=== PATIENT | male | born 1975 | race Caucasian/White ===

== ENCOUNTER → 2024-08-07 | Day surgery (SDC) | payer BC ==
[~2024-08-07] MED LIST: Gadobenate Dimeglumine 2 ML, Sodium Chloride 0.9% 250 ML 10 ML, Iopamidol 8 ML, Lidocai... FS ONE
== END ==
LOC: CSHRAD 12:09
PROVIDERS: ATTEND Orthopaedic Surgery
PROC: BP08YZZ Plain Radiography of Right Shoulder using Other Contrast (ICD-10-PCS; principal; 2024-08-07)
DX: S46.011A Strain of muscle(s) and tendon(s) of the rotator cuff of right shoulder, initial encounter (principal); X58.XXXA Exposure to other specified factors, initial encounter
CPT/HCPCS: 23350; 77002; A9577; J0171; J7050; Q9967